=== PATIENT | female | born 1980 | race Caucasian/White ===

== ENCOUNTER 2016-12-04 21:58 | Inpatient (IN) ==
[2016-12-05] MEDS ORDERED: ACETAMINOPHEN 500 MG TABLET PO PRN (04:16)
[2016-12-05] MEDS ORDERED: DiphenhydrAMINE 25 MG CAPSULE PO PRN (04:16)
[2016-12-05] MEDS ORDERED: HYDROCODONE/APAP 5mg/325mg TABLET PO PRN (04:16)
[2016-12-05] MEDS ORDERED: MAG-AL + SIM ORAL LIQUID 30ml PO PRN (04:16)
[2016-12-05] MEDS ORDERED: CALCIUM CARBONATE Chewable 500mg TABLET PO PRN (04:16)
[2016-12-05] MEDS ORDERED: PHENYLEPHRINE RECTAL SUPPOSITORY PR PRN (04:16)
[2016-12-05] MEDS ORDERED: SALINE FLUSH 10ml SYRINGE IVF PRN (04:16)
[2016-12-05] MEDS ORDERED: ROPIVACAINE EPI ONE (09:04)
[2016-12-05] MEDS ORDERED: SUFENTANIL EPI ONE (09:04)
[2016-12-05] MEDS ORDERED: NS EPI ONE (09:04)
--- NOTE | 2016-12-05 09:23 | Anesthesia Preoperative Report ---
Anesthesia Epidural/Spinal Rec - Date and Time Date and Time: 12/05/16 @ 0020 Procedure: Labor Epidural Plan: Epidural - Vital Signs Height: 5 ft 6 in Weight: 75 kg Vital Signs: see flowsheet- vss /Para: P:5 - Medictaions & Allergies Inpatient Medications: Current Medications Acetaminophen (Tylenol) 500 - 1,000 mg PO Q4HR PRN PRN Reason: Pain Acetaminophen/Hydrocodone Bitart ([place] 5/325) 1 - 2 tab PO Q4H PRN PRN Reason: Pain Al Hydroxide/Mg Hydroxide (Maalox Plus) 30 ml PO Q4H PRN PRN Reason: Indigestion Calcium Carbonate (Tums) 500 - 1,000 mg PO Q2H PRN Diphenhydramine HCl (Benadryl) 25 - 50 mg PO Q6H PRN PRN Reason: Itching Docusate Calcium (Surfak) 240 mg PO DAILY MAGED Ibuprofen (Motrin) 800 mg PO Q8H PRN PRN Reason: Pain Magnesium Hydroxide (Mom) 30 ml PO DAILY PRN PRN Reason: Constipation Phenylephrine HCl (Anusol Supp) 1 supp VT PRN PRN Sodium Chloride (Iv Flush) 10 - 80 ml IVF PRN PRN PRN Reason: Flushing Allergies/Adverse Reactions: Allergies Allergy/AdvReac Type Severity Reaction Status Date / Time cephalexin Allergy Severe Anaphylactic Verified 12/05/16 01:35 Shock metoclopramide Allergy Mild ANXIETY Verified 03/05/13 14:00 Penicillins Allergy Mild HIVES Verified 03/05/13 13:54 - Home Medications Home Medications: Home Medications Medication Instructions Recorded Confirmed Type CALCIUM CARBONATE Chewable [Tums] 500 - 1,000 mg PO DAILY 12/05/16 12/05/16 History Vit Calc,Iron,Folic 1 tab PO DAILY 12/05/16 12/05/16 History [ Vitamins] Ranitidine [Zantac] 150 mg PO DAILY 12/05/16 12/05/16 History - Medical History Respiratory: DENIES: Asthma Gastrointestional: Reports: Gastroesophageal Reflux Disease (recently) Other History: Reports: Now DENIES: Anesthesia Reactions - Surgical History Anesthesia Reactions: None Hx Family Anesthesia Reaction: No History of Motion Sickness: No - Social History Smoking Status: Never smoker Second Hand Exposure: No Substance Use Type: does not use Hx Chewing Tobacco Use: No - Physical Exam Respiratory Exam: lungs clear Cardiovascular Exam: regular rate and rhythm - Airway Assessment Mallampati Score: II TMD: 3 Fingerbreadths Neck Extension: good Overall Assessment: may be difficult mask vent, may be difficult intubation - ASA ASA Score: 2 - Discussion Discussion: Discussed risks/options/alternatives of anesthesia and questions answered. Patient consents. Nursing pain assessment noted. Anesthesia Discussion: spouse, family member, parent Attestation Statement: Prior to the delivery of any anesthetic medication, I examined the patient, developed the plan, obtained the patient's consent and discussed the risk and benefits of the procedure with the patient/guardian.
[2016-12-05] MEDS: DOCUSATE CALCIUM 240 MG CAPSULE PO SCH (09:37)
--- NOTE | 2016-12-05 10:45 | Labor and Delivery Note ---
DATE: 12/05/2016 Zandra is a 36-year-old 8, para 5 at 39 weeks 4 days gestational age who presented to [facility] with complaints of contractions. She was 5 cm dilated on admission. Her membranes were ruptured artificially, returning clear fluids. She received an epidural. She had a spontaneous vaginal delivery in the [place] position of a viable female , Apgars 8/8, weight 3270 grams. Baby was vigorous at delivery so she was placed on mom's abdomen and the cord clamping was delayed for more than 2 minutes. Cord blood was obtained for blood typing. The placenta delivered spontaneously. There were no lacerations. Mom and baby tolerated the delivery well. At this point they are still considering names. CIARAN
[2016-12-05] MEDS: IBUPROFEN 800 MG TABLET PO PRN ×2 (12:57→20:08)
--- NOTE | 2016-12-05 16:38 | Labor and Delivery Note ---
- Labor and Delivery Labor and Delivery: Rh FACTOR CONSULT: Mother Blood Type = A NEG Child Blood Type = A NEG PATIENT NOT A CANDIDATE FOR RHOPHYLAC INJECTION. Thank you.
[2016-12-06] MEDS: IBUPROFEN 800 MG TABLET PO PRN (05:50)
--- NOTE | 2016-12-06 08:25 | OB/GYN Progress Note ---
OB-PP Progress Note - General PPD1 Group B Streptococcal Result: Negative Blood Type: A (-) negative Rubella OB HPI: immune General: Baby A neg - Subjective Date: 12/06/16 Lochia: Minimal Pain: contolled Voiding: voiding - Objective Vital Signs: Last Vital Signs Temp 97.9 F 12/05/16 21:45 Pulse 73 12/05/16 21:45 Resp 16 12/05/16 21:45 BP 124/68 12/05/16 21:45 Pulse Ox 100 12/05/16 21:45 Urine Output: good General: alert and oriented Abdomen: FF, NT Extremities: non-tender - Assessment (1) (spontaneous vaginal delivery) Status: Acute - Plan Plan: routine care, discharge home, continue PNV
--- NOTE | 2016-12-06 08:32 | Discharge Summary ---
Discharge Plan - Med Rec/Dispo Prescriptions: New Hydrocodone/APAP 5/325 [[place] 5/325] 1 - 2 tab PO Q4H PRN #20 tab PRN Reason: Pain Ibuprofen [Motrin] 800 mg PO Q8H PRN #30 tab PRN Reason: Pain No Action Ranitidine [Zantac] 150 mg PO DAILY CALCIUM CARBONATE Chewable [Tums] 500 - 1,000 mg PO DAILY Vit Calc,Iron,Folic [ Vitamins] 1 tab PO DAILY - Disposition 01 Discharged Home, Self-Care
[2016-12-06] MEDS: DOCUSATE CALCIUM 240 MG CAPSULE PO SCH (08:56)
== END 2016-12-06 12:00 | disposition home or self-care (01) | DRG 775 ==
LOC: MC 21:58
PROVIDERS: ADMIT Obstetrics & Gynecology; ATTEND Obstetrics & Gynecology